=== PATIENT | male | born 1995 | race Caucasian/White ===

== ENCOUNTER 2016-12-18 10:22 | Emergency (ER) | payer OTHER ==
[2016-12-18] MEDS ORDERED: KETOROLAC 30 MG/ML VIAL (J1885) As Ordered ONE (11:06)
--- NOTE | 2016-12-18 11:41 | REP ---
RIGHT HAND SERIES: Four views. HISTORY: Trauma. FINDINGS: Four views of the right hand demonstrate a comminuted fracture of the distal end of the 5th metacarpal with associated soft-tissue swelling. There is slight apex dorsal angulation. No displacement. IMPRESSION: Boxer's fracture of the distal 5th metacarpal with associated swelling. Signed by Abbe Mehta MD 12/18/2016 02:27 P
--- NOTE | 2016-12-18 12:21 | EDDOCDS ---
Physician Documentation [facility] Name: Declan Samaniego Age: 21 yrs Sex: Male : 1995 Arrival Date: 12/18/2016 Time: 10:22 Bed I6 / 28 Private MD: Ramírez JHA Disposition: 12/18/16 12:12 Discharged to Home/Self Care. Impression: Displaced fracture of shaft of fifth metacarpal bone, right hand - Closed, 30 degree angulation. - Condition is Stable. - Discharge Instructions: Boxer's Fracture. - Prescriptions for [place] 5- 325 mg Oral Tablet - take 1 tablet by ORAL route every 6 hours As needed MDD: 4 tabs; 20 tablet. - Medication Reconciliation, Local Pharmacy Hours form. - Follow up: Ortho Ramírez Poole; When: 1 - 2 days; Reason: Further diagnostic work-up, Recheck today's complaints, Continuance of care. Follow up: Emergency Department; Reason: Worsening of conditions. - Problem is new. - Symptoms have improved. Historical: - Allergies: SULFA (SULFONAMIDES) (Hives); - Home Meds: 1. Concerta 72 mg Oral once daily (Last dose: 12/17/2016) 2. ibuprofen 200 mg Oral tab 800 mg every 6 hours as needed (Last dose: 12/17/2016) - PMHx: ADHD; - PSHx: left schafoid bone; - Social history: Smoking status: Patient states was never smoker of tobacco. No barriers to communication noted, The patient speaks fluent Italian. - Family history: Not pertinent. - : The pt / caregiver states he / she is not on anticoagulants. Home medication list is obtained from the patient. - Exposure Risk Screening:: None identified. Vital Signs: 12/18 10:25 BP 147 / 70; Pulse 90; Resp 17; Temp 98.7(T); Pulse Ox 98% on R/A; Weight 104.33 kg / lr2 230.01 lbs (R); Height 6 ft. 3 in. (190.50 cm) (R); Pain 6/10; 12:18 BP 138 / 72; Pulse 91; Resp 18; Temp 97.3; Pulse Ox 98% on R/A; Pain 5/10; pml 10:25 Body Mass Index 28.75 (104.33 kg, 190.50 cm) lr2 Procedures: 12:10 Fracture care/splinting: Splint applied to right hand using Orthoglass splint, applied ef1 by myself. Examined by me, post splint application: neurovascular intact, 2+ distal pulses palpable, brisk capillary refill noted, Patient tolerated well. MDM: 11:05 ketorolac 60 mg IM once ordered. ef1 11:05 Ice Pack ordered. ef1 11:05 Hand, Complete Ordered. EDMS 11:09 Financial registration complete. mm15 11:10 [facility] Payment Agreement was scanned into [employer] and attached to record. mm15 12:09 Sling ordered. ef1 12:10 Splint Affected Extremity ordered. ef1 Administered Medications: 11:09 Drug: ketorolac 60 mg [ketorolac 30 mg/mL (1 mL) injection solution (2 mL)] Route: IM; srm Site: left deltoid; 12:19 Follow up: Response: Pain is decreased pml Signatures: Dispatcher [employer] EDID Elizabeth Silva RN RN kpj Feola, Erica, PA-C PA-C ef1 Jerrica Pepper RN RN pml Romeo Raphael mm15 Jessica Guardado RN srm The chart was reviewed and I authenticate all verbal orders and agree with the evaluation and treatment provided.Attachments: 11:10 [facility] Payment Agreement mm15 MTDD
--- NOTE | 2016-12-18 12:21 | EDDOCDS ---
Nurse's Notes [facility] Name: Declan Samaniego Age: 21 yrs Sex: Male : 1995 Arrival Date: 12/18/2016 Time: 10:22 Bed I6 / 28 [facility] Diagnosis: Displaced fracture of shaft of fifth metacarpal bone, right hand-Closed, 30 degree angulation Presentation: 12/18 10:47 Presenting complaint: Patient states: punched a tank with his right hand yesterday kpj injuring right hand.bruising and swelling over right fourth and fifth metacarpals. Adult Sepsis Screening: The patient does not have new or worsening altered mentation. Patient's respiratory rate is less than 22. Systolic blood pressure is greater than 100. Patient has a qSOFA score of 0- Negative Sepsis Screen. Suicide/Homicide risk assessment- the patient denies having any suicidal and/or homicidal ideations and does not present with any other emotional, behavioral or mental health complaints. Status: The patient is an active duty auto service dispatcher. Transition of care: patient was not received from another setting of care. 10:47 Acuity: TOOTIE Level 3 [facility] 10:47 Method Of Arrival: Walkin/Carried/Asstd kpj Triage Assessment: 10:51 General: Appears in no apparent distress, Behavior is appropriate for age, pleasant. kpj Pain: Location: right hand Pain currently is 6 out of 10 on a pain scale. HIV screening NA for this visit Offered previously. Neurological: Level of Consciousness is awake, alert, Oriented to person, place, time. Respiratory: Airway is patent Respiratory effort is even, unlabored. Derm: Skin is pink, warm & dry. Musculoskeletal: Circulation, motion, and sensation intact Capillary refill < 3 seconds in right fingers Swelling present in right hand. Historical: - Allergies: SULFA (SULFONAMIDES) (Hives); - Home Meds: 1. Concerta 72 mg Oral once daily (Last dose: 12/17/2016) 2. ibuprofen 200 mg Oral tab 800 mg every 6 hours as needed (Last dose: 12/17/2016) - PMHx: ADHD; - PSHx: left schafoid bone; - Social history: Smoking status: Patient states was never smoker of tobacco. No barriers to communication noted, The patient speaks fluent Bolivian. - Family history: Not pertinent. - : The pt / caregiver states he / she is not on anticoagulants. Home medication list is obtained from the patient. - Exposure Risk Screening:: None identified. Screenin:18 Screening information is obtained from the patient. Fall risk: No risks identified. pml Assistance ADL's: requires no assistance with activities of daily living. Abuse/DV Screen: The patient / caregiver reports he/she is: not in a situation that causes fear, pain or injury. Nutritional screening: No deficits noted. Advance Directives: Currently, there is no health care proxy. home support is adequate. Assessment: 12:18 General: Appears in no apparent distress, comfortable, Behavior is appropriate for age, pml cooperative. Pain: Location: right hand Pain currently is 5 out of 10 on a pain scale. Neurological: Level of Consciousness is awake, alert, Oriented to person, place, time. Cardiovascular: Capillary refill < 3 seconds. Respiratory: Airway is patent Respiratory effort is even, unlabored. GI: Abdomen is non- distended. Derm: Skin is pink, warm & dry. Musculoskeletal: Circulation, motion, and sensation intact Capillary refill < 3 seconds. Vital Signs: 10:25 BP 147 / 70; Pulse 90; Resp 17; Temp 98.7(T); Pulse Ox 98% on R/A; Weight 104.33 kg lr2 (R); Height 6 ft. 3 in. (190.50 cm) (R); Pain 6/10; 12:18 BP 138 / 72; Pulse 91; Resp 18; Temp 97.3; Pulse Ox 98% on R/A; Pain 5/10; pml 10:25 Body Mass Index 28.75 (104.33 kg, 190.50 cm) lr2 Vitals: 10:25 Log In Time: December 18, 2016 at 10:22. lr2 ED Course: 10:24 Patient visited by Caitlin Hdez. lr2 10:24 [facility]. lr2 10:24 Patient moved to Waiting lr2 10:44 Patient moved to Pre RCE lr2 10:49 Triage Initiated [facility] 10:52 Patient moved to Triage 2 [facility] 10:54 Jennifer Humphrey PA-C is PHCP. ef1 10:54 Jagruti Johnston MD is Attending Physician. ef1 10:54 Patient visited by Jennifer Humphrey PA-C. ef1 11:09 Patient moved to TR3 [facility] 11:09 Patient moved to Radiology [facility] 11:10 [facility] Payment Agreement was scanned into [employer] and attached to record. mm15 11:15 Patient moved to TR3 es5 11:31 Patient visited by Jennifer Humphrey PA-C. ef1 11:44 Patient moved to I6 / 28 [facility] 12:00 Hand, Complete Returned. EDMS 12:01 Patient visited by Jennifer Humphrey PA-C. ef1 12:05 Assist provider with fracture care of right hand Fracture is closed. Obvious deformity pml is not noted. Circulation, motor and sensation is intact. Set up for procedure. Immoblized with Ortho Glass splint Performed by Jennifer Humphrey PA-C Post immobilization, circulation, motor and sensation remain intact. Patient tolerated well. 12:12 Waylon Westfall is Referral Physician. ef1 12:18 The patient / caregiver is instructed regarding the plan of care and ED course. Patient pml has correct armband on for positive identification. Placed in gown. Bed in low position. Call light in reach. Side rails up X2. 12:18 No IV's were initiated during this patient's visit. pml Administered Medications: 11:09 Drug: ketorolac 60 mg [ketorolac 30 mg/mL (1 mL) injection solution (2 mL)] Route: IM; [facility] Site: left deltoid; 12:19 Follow up: Response: Pain is decreased pml Order Results: Radiology Order: Hand, Complete Test: Hand, Complete REASON FOR EXAMINATION: Trauma; RIGHT HAND SERIES: Four views.; ; HISTORY: Trauma.; ; FINDINGS: Four views of the right hand demonstrate a comminuted fracture of the; distal end of the 5th metacarpal with associated soft-tissue swelling. There is; slight apex dorsal angulation. No displacement.; ; IMPRESSION:; Boxer's fracture of the distal 5th metacarpal with associated swelling.; ; ; ; ; Unreviewed; Outcome: 12:12 Discharge ordered by Provider. ef1 12:18 Discharge Assessment: Patient awake, alert and oriented x 3. No cognitive and/or pml functional deficits noted. Patient verbalized understanding of disposition instructions. patient administered narcotics - no. The following High Risk Discharge criteria are identified: None. Discharged to home ambulatory, with significant other. Condition: good Condition: stable. Discharge instructions given to patient, Instructed on discharge instructions, follow up and referral plans. medication usage, no driving heavy equipment, Demonstrated understanding of instructions, medications, Pt was receptive of discharge instructions/ teaching. Prescriptions given X 1. No special radiology studies were completed. Property sent home with patient. 12:20 Patient left the ED. pml Signatures: Dispatcher [employer] EDCA Elizabeth Silva RN RN kpj Michelson, Staci RN Jennifer Byers, PA-C PA-C ef1 Jerrica Pepper RN RN Rachell CarpenterRN RN marcela Jennifer Suárez es5 Romeo Raphael mm15 Caitlin Hdez lr2 MTDD
--- NOTE | 2016-12-20 13:21 | EDDOCDS ---
Physician Documentation [facility] Name: Declan Samaniego Age: 21 yrs Sex: Male : 1995 Arrival Date: 12/18/2016 Time: 10:22 Bed I6 / 28 Private MD: Ramírez JHA Disposition: 12/18/16 12:12 Discharged to Home/Self Care. Impression: Displaced fracture of shaft of fifth metacarpal bone, right hand - Closed, 30 degree angulation. - Condition is Stable. - Discharge Instructions: Boxer's Fracture. - Prescriptions for [place] 5- 325 mg Oral Tablet - take 1 tablet by ORAL route every 6 hours As needed MDD: 4 tabs; 20 tablet. - Medication Reconciliation, Local Pharmacy Hours form. - Follow up: Ortho Ramírez [facility]; When: 1 - 2 days; Reason: Further diagnostic work-up, Recheck today's complaints, Continuance of care. Follow up: Emergency Department; Reason: Worsening of conditions. - Problem is new. - Symptoms have improved. Historical: - Allergies: SULFA (SULFONAMIDES) (Hives); - Home Meds: 1. Concerta 72 mg Oral once daily (Last dose: 12/17/2016) 2. ibuprofen 200 mg Oral tab 800 mg every 6 hours as needed (Last dose: 12/17/2016) - PMHx: ADHD; - PSHx: left schafoid bone; - Social history: Smoking status: Patient states was never smoker of tobacco. No barriers to communication noted, The patient speaks fluent Sinhala. - Family history: Not pertinent. - : The pt / caregiver states he / she is not on anticoagulants. Home medication list is obtained from the patient. - Exposure Risk Screening:: None identified. Vital Signs: 12/18 10:25 BP 147 / 70; Pulse 90; Resp 17; Temp 98.7(T); Pulse Ox 98% on R/A; Weight 104.33 kg / lr2 230.01 lbs (R); Height 6 ft. 3 in. (190.50 cm) (R); Pain 6/10; 12:18 BP 138 / 72; Pulse 91; Resp 18; Temp 97.3; Pulse Ox 98% on R/A; Pain 5/10; pml 10:25 Body Mass Index 28.75 (104.33 kg, 190.50 cm) lr2 Procedures: 12:10 Fracture care/splinting: Splint applied to right hand using Orthoglass splint, applied ef1 by myself. Examined by me, post splint application: neurovascular intact, 2+ distal pulses palpable, brisk capillary refill noted, Patient tolerated well. MDM: 11:05 ketorolac 60 mg IM once ordered. ef1 11:05 Ice Pack ordered. ef1 11:05 Hand, Complete Ordered. EDMS 11:09 Financial registration complete. mm15 11:10 REPLACED BY [facility] Payment Agreement was scanned into [employer] and attached to record. mm15 12:09 Sling ordered. ef1 12:10 Splint Affected Extremity ordered. ef1 15:45 T-Sheet-- Draft Copy was scanned into [employer] and attached to record. klr Administered Medications: 11:09 Drug: ketorolac 60 mg [ketorolac 30 mg/mL (1 mL) injection solution (2 mL)] Route: IM; srm Site: left deltoid; 12:19 Follow up: Response: Pain is decreased pml Signatures: Dispatcher [employer] EDMS Elizabeth Silva RN RN Jennifer Yeung, PA-C PARaymond ef1 Jerrica Pepper RN RN pml Romeo Raphael mm15 Denice Arceo Staci RN srm The chart was reviewed and I authenticate all verbal orders and agree with the evaluation and treatment provided.Attachments: 11:10 REPLACED BY [facility] Payment Agreement mm15 15:45 T-Sheet-- Draft Copy klr Chart Complete MTDD
--- NOTE | 2016-12-20 13:21 | EDDOCDS ---
Physician Documentation [facility] Name: Declan Samaniego Age: 21 yrs Sex: Male : 1995 Arrival Date: 12/18/2016 Time: 10:22 Bed I6 / 28 Private MD: Ramírez JHA Disposition: 12/18/16 12:12 Discharged to Home/Self Care. Impression: Displaced fracture of shaft of fifth metacarpal bone, right hand - Closed, 30 degree angulation. - Condition is Stable. - Discharge Instructions: Boxer's Fracture. - Prescriptions for [place] 5- 325 mg Oral Tablet - take 1 tablet by ORAL route every 6 hours As needed MDD: 4 tabs; 20 tablet. - Medication Reconciliation, Local Pharmacy Hours form. - Follow up: Ortho Ramírez [facility]; When: 1 - 2 days; Reason: Further diagnostic work-up, Recheck today's complaints, Continuance of care. Follow up: Emergency Department; Reason: Worsening of conditions. - Problem is new. - Symptoms have improved. Historical: - Allergies: SULFA (SULFONAMIDES) (Hives); - Home Meds: 1. Concerta 72 mg Oral once daily (Last dose: 12/17/2016) 2. ibuprofen 200 mg Oral tab 800 mg every 6 hours as needed (Last dose: 12/17/2016) - PMHx: ADHD; - PSHx: left schafoid bone; - Social history: Smoking status: Patient states was never smoker of tobacco. No barriers to communication noted, The patient speaks fluent Spanish. - Family history: Not pertinent. - : The pt / caregiver states he / she is not on anticoagulants. Home medication list is obtained from the patient. - Exposure Risk Screening:: None identified. Vital Signs: 12/18 10:25 BP 147 / 70; Pulse 90; Resp 17; Temp 98.7(T); Pulse Ox 98% on R/A; Weight 104.33 kg / lr2 230.01 lbs (R); Height 6 ft. 3 in. (190.50 cm) (R); Pain 6/10; 12:18 BP 138 / 72; Pulse 91; Resp 18; Temp 97.3; Pulse Ox 98% on R/A; Pain 5/10; pml 10:25 Body Mass Index 28.75 (104.33 kg, 190.50 cm) lr2 Procedures: 12:10 Fracture care/splinting: Splint applied to right hand using Orthoglass splint, applied ef1 by myself. Examined by me, post splint application: neurovascular intact, 2+ distal pulses palpable, brisk capillary refill noted, Patient tolerated well. MDM: 11:05 ketorolac 60 mg IM once ordered. ef1 11:05 Ice Pack ordered. ef1 11:05 Hand, Complete Ordered. EDMS 11:09 Financial registration complete. mm15 11:10 [facility] Payment Agreement was scanned into [employer] and attached to record. mm15 12:09 Sling ordered. ef1 12:10 Splint Affected Extremity ordered. ef1 15:45 T-Sheet-- Draft Copy was scanned into [employer] and attached to record. klr Administered Medications: 11:09 Drug: ketorolac 60 mg [ketorolac 30 mg/mL (1 mL) injection solution (2 mL)] Route: IM; srm Site: left deltoid; 12:19 Follow up: Response: Pain is decreased pml Signatures: Dispatcher [employer] EDMS Elizabeth Silva RN RN Jennifer Yeung, PA-C PARaymond ef1 Jerrica Pepper RN RN pml Romeo Raphael mm15 Denice Arceo Staci RN srm The chart was reviewed and I authenticate all verbal orders and agree with the evaluation and treatment provided.Attachments: 11:10 [facility] Payment Agreement mm15 15:45 T-Sheet-- Draft Copy klr Chart Complete MTDD
--- NOTE | 2016-12-20 13:21 | EDDOCDS ---
Nurse's Notes [facility] Name: Declan Samaniego Age: 21 yrs Sex: Male : 1995 Arrival Date: 12/18/2016 Time: 10:22 Bed I6 / 28 [facility] Diagnosis: Displaced fracture of shaft of fifth metacarpal bone, right hand-Closed, 30 degree angulation Presentation: 12/18 10:47 Presenting complaint: Patient states: punched a tank with his right hand yesterday kpj injuring right hand.bruising and swelling over right fourth and fifth metacarpals. Adult Sepsis Screening: The patient does not have new or worsening altered mentation. Patient's respiratory rate is less than 22. Systolic blood pressure is greater than 100. Patient has a qSOFA score of 0- Negative Sepsis Screen. Suicide/Homicide risk assessment- the patient denies having any suicidal and/or homicidal ideations and does not present with any other emotional, behavioral or mental health complaints. Status: The patient is an active duty support services manager. Transition of care: patient was not received from another setting of care. 10:47 Acuity: TOOTIE Level 3 [facility] 10:47 Method Of Arrival: Walkin/Carried/Asstd kpj Triage Assessment: 10:51 General: Appears in no apparent distress, Behavior is appropriate for age, pleasant. kpj Pain: Location: right hand Pain currently is 6 out of 10 on a pain scale. HIV screening NA for this visit Offered previously. Neurological: Level of Consciousness is awake, alert, Oriented to person, place, time. Respiratory: Airway is patent Respiratory effort is even, unlabored. Derm: Skin is pink, warm & dry. Musculoskeletal: Circulation, motion, and sensation intact Capillary refill < 3 seconds in right fingers Swelling present in right hand. Historical: - Allergies: SULFA (SULFONAMIDES) (Hives); - Home Meds: 1. Concerta 72 mg Oral once daily (Last dose: 12/17/2016) 2. ibuprofen 200 mg Oral tab 800 mg every 6 hours as needed (Last dose: 12/17/2016) - PMHx: ADHD; - PSHx: left schafoid bone; - Social history: Smoking status: Patient states was never smoker of tobacco. No barriers to communication noted, The patient speaks fluent Cameroonian. - Family history: Not pertinent. - : The pt / caregiver states he / she is not on anticoagulants. Home medication list is obtained from the patient. - Exposure Risk Screening:: None identified. Screenin:18 Screening information is obtained from the patient. Fall risk: No risks identified. pml Assistance ADL's: requires no assistance with activities of daily living. Abuse/DV Screen: The patient / caregiver reports he/she is: not in a situation that causes fear, pain or injury. Nutritional screening: No deficits noted. Advance Directives: Currently, there is no health care proxy. home support is adequate. Assessment: 12:18 General: Appears in no apparent distress, comfortable, Behavior is appropriate for age, pml cooperative. Pain: Location: right hand Pain currently is 5 out of 10 on a pain scale. Neurological: Level of Consciousness is awake, alert, Oriented to person, place, time. Cardiovascular: Capillary refill < 3 seconds. Respiratory: Airway is patent Respiratory effort is even, unlabored. GI: Abdomen is non- distended. Derm: Skin is pink, warm & dry. Musculoskeletal: Circulation, motion, and sensation intact Capillary refill < 3 seconds. Vital Signs: 10:25 BP 147 / 70; Pulse 90; Resp 17; Temp 98.7(T); Pulse Ox 98% on R/A; Weight 104.33 kg lr2 (R); Height 6 ft. 3 in. (190.50 cm) (R); Pain 6/10; 12:18 BP 138 / 72; Pulse 91; Resp 18; Temp 97.3; Pulse Ox 98% on R/A; Pain 5/10; pml 10:25 Body Mass Index 28.75 (104.33 kg, 190.50 cm) lr2 Vitals: 10:25 Log In Time: December 18, 2016 at 10:22. lr2 ED Course: 10:24 Patient visited by Caitlin Hdez. lr2 10:24 [facility]. lr2 10:24 Patient moved to Waiting lr2 10:44 Patient moved to Pre RCE lr2 10:49 Triage Initiated [facility] 10:52 Patient moved to Triage 2 [facility] 10:54 Jennifer Humphrey PA-C is PHCP. ef1 10:54 Jagruti Johnston MD is Attending Physician. ef1 10:54 Patient visited by Jennifer Humphrey PA-C. ef1 11:09 Patient moved to TR3 [facility] 11:09 Patient moved to Radiology [facility] 11:10 [facility] Payment Agreement was scanned into [email or web address] and attached to record. mm15 11:15 Patient moved to TR3 es5 11:31 Patient visited by Jennifer Humphrey PA-C. ef1 11:44 Patient moved to I6 / [facility] 12:00 Hand, Complete Returned. EDMS 12:01 Patient visited by Jennifer Humphrey PA-C. ef1 12:05 Assist provider with fracture care of right hand Fracture is closed. Obvious deformity pml is not noted. Circulation, motor and sensation is intact. Set up for procedure. Immoblized with Ortho Glass splint Performed by Jennifer Humphrey PA-C Post immobilization, circulation, motor and sensation remain intact. Patient tolerated well. 12:12 Waylon Westfall is Referral Physician. ef1 12:18 The patient / caregiver is instructed regarding the plan of care and ED course. Patient pml has correct armband on for positive identification. Placed in gown. Bed in low position. Call light in reach. Side rails up X2. 12:18 No IV's were initiated during this patient's visit. pml 12:20 Sling applied to right arm. Patient with positive distal sensation and brisk distal pml capillary refill after application. 15:45 T-Sheet-- Draft Copy was scanned into [email or web address] and attached to record. klr Administered Medications: 11:09 Drug: ketorolac 60 mg [ketorolac 30 mg/mL (1 mL) injection solution (2 mL)] Route: IM; [facility] Site: left deltoid; 12:19 Follow up: Response: Pain is decreased pml Order Results: Radiology Order: Hand, Complete Test: Hand, Complete REASON FOR EXAMINATION: Trauma; RIGHT HAND SERIES: Four views.; ; HISTORY: Trauma.; ; FINDINGS: Four views of the right hand demonstrate a comminuted fracture of the; distal end of the 5th metacarpal with associated soft-tissue swelling. There is; slight apex dorsal angulation. No displacement.; ; IMPRESSION:; ; Boxer's fracture of the distal 5th metacarpal with associated swelling.; ; ; Signed by; Abbe Mehta MD 12/18/2016 02:27 P; Outcome: 12:12 Discharge ordered by Provider. ef1 12:18 Discharge Assessment: Patient awake, alert and oriented x 3. No cognitive and/or pml functional deficits noted. Patient verbalized understanding of disposition instructions. patient administered narcotics - no. The following High Risk Discharge criteria are identified: None. Discharged to home ambulatory, with significant other. Condition: good Condition: stable. Discharge instructions given to patient, Instructed on discharge instructions, follow up and referral plans. medication usage, no driving heavy equipment, Demonstrated understanding of instructions, medications, Pt was receptive of discharge instructions/ teaching. Prescriptions given X 1. No special radiology studies were completed. Property sent home with patient. 12:20 Patient left the ED. pml Signatures: Dispatcher [employer] EDMS Elizabeth Silva RN RN Jessica Cavazos RN RN Jennifer Zamudio, PA-C PA-C ef1 Jerrica Pepper RN RN pml Hafner, Jane, RN RN [facility] Jennifer Suárez es5 Romeo Raphael mm15 Denice Arceo Laura lr2 Chart Complete MTDJamila
== END 2016-12-18 12:20 | disposition home or self-care (01) ==
LOC: M ED 10:22
DX: S62.316A Displaced fracture of base of fifth metacarpal bone, right hand, initial encounter for closed fracture (principal); W22.8XXA Striking against or struck by other objects, initial encounter; Y92.89 Other specified places as the place of occurrence of the external cause; Y93.89 Activity, other specified; Y99.1 Military activity; F90.9 Attention-deficit hyperactivity disorder, unspecified type; Z79.899 Other long term (current) drug therapy; Z88.2 Allergy status to sulfonamides
CPT/HCPCS: 73130; 96372; 99284; J1885

== ENCOUNTER 2017-03-31 14:54 | Inpatient (IN) | payer OTHER ==
[~2017-03-31] VITALS: Ht 190.5 cm; Wt 113.6 kg
[2017-03-31] MEDS ORDERED: ADDE20CA PO (15:11)
[2017-03-31] MEDS ORDERED: MORPHINE 4 MG/ML 1ML SYRINGE IV ONE ×3 (15:30→18:15)
[2017-03-31] MEDS ORDERED: ONDANSETRON 4MG/2ML VIAL (J2405) IV ONE (15:30)
[2017-03-31 16:15] LABS: BASO # 0.1 K/mm3 (0.0-0.2); BASO % 0.5 % (0.0-1.0); EOS # 0.1 K/mm3 (0.0-0.50); EOS % 1.2 % (0.0-3.0); LARGE UNSTAINED CELL # 0.3 K/mm3 (0.0-0.4); LARGE UNSTAINED CELL % 2.6 % (0.0-4.0); LYMPH # 1.7 K/mm3 (1.5-6.5); LYMPH % 11.3 % (24.0-44.0); MEAN CORPUSCULAR HEMOGLOBIN 30.7 pg (27.0-33.0); MEAN CORPUSCULAR VOLUME 85.4 fl (80.0-96.0); MONO % 8.7 % (0.0-5.0); NEUTROPHILS # 9.1 K/mm3 (1.8-7.7); NEUTROPHILS % 75.7 % (36.0-66.0); PLATELET COUNT, AUTOMATED 281 k/mm3 (150-450); RED CELL DISTRIBUTION WIDTH 11.7 % (11.5-14.5)
[2017-03-31 16:47] LABS: ALBUMIN 3.8 GM/DL (3.2-5.2); ALBUMIN/GLOBULIN RATIO 0.93 (1.00-1.93); ALKALINE PHOSPHATASE 118 U/L (45-117); ALT/SGPT 52 U/L (12-78); ANION GAP 6 MEQ/L (8-16); AST/SGOT 25 U/L (15-37); BILIRUBIN,DIRECT 0.2 MG/DL (0.0-0.2); BILIRUBIN,TOTAL 0.9 MG/DL (0.2-1.0); BLOOD UREA NITROGEN 15 MG/DL (7-18); CALCIUM LEVEL 8.8 MG/DL (8.5-10.1); CARBON DIOXIDE LEVEL 29 MEQ/L (21-32); CHLORIDE LEVEL 99 MEQ/L (98-107); CREATININE FOR GFR 1.05 MG/DL (0.70-1.30); GLOMERULAR FILTRATION RATE > 60.0 (>60); GLUCOSE, FASTING 80 MG/DL (70-105); POTASSIUM SERUM 3.8 MEQ/L (3.5-5.1); SODIUM LEVEL 134 MEQ/L (136-145); TOTAL PROTEIN 7.9 GM/DL (6.4-8.2)
[2017-03-31] MEDS ORDERED: ISOVUE-370 76% 100ML VIAL (Q9967) As Ordered ONE (16:52)
--- NOTE | 2017-03-31 18:00 | REP ---
CT of the abdomen pelvis: Studies requested without IV contrast but without bowel contrast: There are no comparisons. There is paracecal phlegmon and abscess. The appendix is not identified as a distinct structure, however, findings are compatible with appendiceal rupture and appendicitis. There is no pneumoperitoneum. There is no ascites. The visualized lung morataya are unremarkable except for dependent atelectasis. The hepatic parenchyma, gallbladder, pancreas, spleen, adrenals, kidneys, abdominal aorta are unremarkable. The remainder of the bowel is unremarkable. Pelvis: The bladder is unremarkable. There is no adenopathy or ascites. Pelvic bowel loops are unremarkable except for the pericecal phlegmon. Impression: Paracecal phlegmon and abscess formation compatible with ruptured appendix and appendicitis. There are no comparison studies. There is no pneumoperitoneum or ascites. Signed by Emeka Baig MD 03/31/2017 05:51 P
[2017-03-31] MEDS ORDERED: NS 1,000 ML IV ONE (18:15)
[2017-03-31] MEDS ORDERED: PIPERACILLIN/TAZOBACTAM SOD 3.375 GM in D5W MINI-BAG PLUS 50 ML IV ONE (18:15)
[2017-03-31] MEDS ORDERED: PERCOCET 5MG/325MG TAB PO PRN (19:00)
[2017-03-31] MEDS ORDERED: METOCLOPRAMIDE INJ 10MG/2ML VIAL (J2765) IV PRN (19:00)
[2017-03-31] MEDS ORDERED: ONDANSETRON 4MG/2ML VIAL (J2405) IV PRN (19:00)
[2017-03-31] MEDS ORDERED: MORPHINE 4 MG/ML 1ML SYRINGE IV PRN (19:00)
[2017-03-31] MEDS ORDERED: PROMETHAZINE INJ 25 MG/ML VIAL (J2550) IV PRN (19:00)
[2017-03-31] MEDS ORDERED: MORPHINE 2 MG/ML 1ML SYRINGE IV PRN (19:00)
[2017-03-31 21:25] VITALS: BP 120/65
[2017-03-31] MEDS: KETOROLAC 30 MG/ML VIAL (J1885) IV PRN (21:34)
[2017-03-31] MEDS: LR 1,000 ML IV SCH (21:44)
[2017-04-01] VITALS: BP 118/56
[2017-04-01] MEDS: PIPERACILLIN/TAZOBACTAM SOD 3.375 GM in D5W MINI-BAG PLUS 50 ML IV SCH ×4 (01:01→20:27)
[2017-04-01 04:00] VITALS: BP 119/59
[2017-04-01] MEDS: KETOROLAC 30 MG/ML VIAL (J1885) IV PRN ×3 (04:27→20:27)
[2017-04-01] MEDS: LR 1,000 ML IV SCH ×3 (06:57→21:30)
[2017-04-01 07:06] LABS: MEAN CORPUSCULAR HEMOGLOBIN 30.9 pg (27.0-33.0); MEAN CORPUSCULAR VOLUME 88.2 fl (80.0-96.0); RED CELL DISTRIBUTION WIDTH 11.5 % (11.5-14.5); WHITE BLOOD COUNT 12.1 K/mm3 (4.0-10.0)
[2017-04-01 07:20] LABS: ANION GAP 7 MEQ/L (8-16); BLOOD UREA NITROGEN 15 MG/DL (7-18); CALCIUM LEVEL 8.8 MG/DL (8.5-10.1); CARBON DIOXIDE LEVEL 28 MEQ/L (21-32); CHLORIDE LEVEL 102 MEQ/L (98-107); CREATININE FOR GFR 1.18 MG/DL (0.70-1.30); GLOMERULAR FILTRATION RATE > 60.0 (>60); GLUCOSE, FASTING 86 MG/DL (70-105); POTASSIUM SERUM 4.4 MEQ/L (3.5-5.1); SODIUM LEVEL 137 MEQ/L (136-145)
[2017-04-01 08:00] VITALS: BP 120/57
[2017-04-01 12:00] VITALS: BP 122/63
--- NOTE | 2017-04-01 13:47 | IPN ---
DATE: 04/01/2017 Patient overall has been doing well overnight, although he states that his pain is better than it was last night. He did have a temperature of 100 overnight and his white count is stable at 12.1. Overall, vital signs are stable. He is not appearing septic; however, he still has some significant tenderness on his physical exam in the right lower quadrant, with some guarding present without significant rebound. IMPRESSION AND PLAN: The patient has a probable perforated appendicitis and is developing an abscess with his white count persistently elevated as well as his temperature being increased overnight. I do feel that it is warranted to attempt a CT guided drainage. Will schedule that for today. If he has a drain placed, we will keep that in over the weekend and consider discontinuing the drain once he has had a normal white count for 24-48 hours and his drainage is less than 30 mL. Otherwise, will await the CT findings.
[2017-04-01] MEDS ORDERED: LIDOCAINE 1% MDV 20ML VIAL As Ordered ONE (13:55)
--- NOTE | 2017-04-01 14:02 | HPE ---
DATE OF ADMISSION: 03/31/2017 CHIEF COMPLAINT: Perforated appendix with periappendiceal abscess. HISTORY OF PRESENT ILLNESS: The patient is a 22-year-old male who started having pain approximately 5 days prior to admission; specifically, on the right side of his abdomen. Initially, unsure if this was musculoskeletal or some sort of GI issue. He kind of worked through his pain and discomfort and was able to receive some IV fluids over the weekend. Then, was seen in [facility] this week and it sounds as though he was seen a couple of times. Initially, had some pain and it sounds as though it may have been slowly improving but present and then became much worse over the last 24 hours. He had an elevated white count and was referred to the emergency room for additional evaluation/treatment. MEDICATIONS (include): - Adderall PAST MEDICAL HISTORY: Significant for attention deficit hyperactivity disorder (ADHD) and left wrist surgery. PHYSICAL EXAMINATION: Reveals a 22-year-old male who looks stated age. HEENT: Reveals an atraumatic, normocephalic head with extraocular movements intact. Pupils are equal and reactive to light. Sclerae nonicteric. Oropharynx clear without exudate or lesions. Neck: Supple without adenopathy. Lungs are clear to auscultation without crackles, wheeze or rhonchi. Heart is regular without murmur. Abdomen is soft, nondistended, but he is tender with some guarding in the right lower quadrant. Extremities: Warm, well-perfused. IMPRESSION AND PLAN: The patient has evidence of probable perforated appendicitis with a developing abscess/phlegmon and my recommendation is that we keep him on antibiotics, make him nothing by mouth (n.p.o.) overnight and see how he does by the morning. If he has significant improvement, we may be able to keep him on antibiotics over the weekend and then possibly reevaluate him early next week Tuesday or Tuesday with a repeat CT scan. However, if he does not have improvement of his white count or has fevers or increasing pain, then we should proceed with a CT-guided drainage. The patient understands our current plan and agrees to continue with current plan at this time.
[2017-04-01] MEDS: PERCOCET 5MG/325MG TAB PO PRN (14:51)
[2017-04-01 16:00] VITALS: BP 127/63
--- NOTE | 2017-04-01 16:12 | REP ---
ULTRASOUND GUIDED RIGHT LOWER QUADRANT ABSCESS DRAIN: The procedure was performed under the direct supervision of Dr. Mehta. The patient has a history of a pericecal phlegmon and abscess formation compatible with ruptured appendix and appendicitis in the right lower quadrant seen on a previous CT scan dated 03/31/2017. The risks and benefits of the procedure were explained to the patient and informed consent was obtained. The right lower quadrant abscess was localized using ultrasound guidance. The skin was prepped and draped in a sterile fashion. 1% Xylocaine was used a local anesthetic. Using ultrasound guidance, an #8-Kos[place] skater APDL catheter was inserted using trocar technique. 25 mL of brown/red colored fluid was withdrawn and sent to the lab. The catheter was affixed to the skin and sterile dressing was applied. The catheter was connected to a gravity drainage bag. The patient tolerated the procedure well and there were no immediate complications. Reviewed by NATIVIDAD Pang 04/01/2017 04:46 PEdited and Signed by Abbe Mehta MD 04/04/2017 08:34 A
[2017-04-01 20:00] VITALS: BP 135/69
[2017-04-02] VITALS: BP 114/62
[2017-04-02] MEDS: PERCOCET 5MG/325MG TAB PO PRN ×2 (00:06→12:56)
[2017-04-02] MEDS: PIPERACILLIN/TAZOBACTAM SOD 3.375 GM in D5W MINI-BAG PLUS 50 ML IV SCH ×4 (01:39→19:19)
[2017-04-02 04:00] VITALS: BP 106/57
[2017-04-02 06:45] LABS: MEAN CORPUSCULAR HEMOGLOBIN 30.2 pg (27.0-33.0); MEAN CORPUSCULAR VOLUME 86.3 fl (80.0-96.0); RED CELL DISTRIBUTION WIDTH 11.8 % (11.5-14.5); WHITE BLOOD COUNT 8.2 K/mm3 (4.0-10.0)
[2017-04-02 07:10] LABS: ANION GAP 6 MEQ/L (8-16); BLOOD UREA NITROGEN 13 MG/DL (7-18); CALCIUM LEVEL 8.6 MG/DL (8.5-10.1); CARBON DIOXIDE LEVEL 29 MEQ/L (21-32); CHLORIDE LEVEL 104 MEQ/L (98-107); CREATININE FOR GFR 1.11 MG/DL (0.70-1.30); GLOMERULAR FILTRATION RATE > 60.0 (>60); GLUCOSE, FASTING 91 MG/DL (70-105); POTASSIUM SERUM 4.2 MEQ/L (3.5-5.1); SODIUM LEVEL 139 MEQ/L (136-145)
[2017-04-02 08:00] VITALS: BP 119/59
[2017-04-02] MEDS: KETOROLAC 30 MG/ML VIAL (J1885) IV PRN ×2 (08:08→18:21)
[2017-04-02 12:00] VITALS: BP 116/61
[2017-04-02] MEDS: DOCUSATE SODIUM 100 MG CAP PO SCH ×2 (12:51→20:18)
[2017-04-02 16:00] VITALS: BP 110/58
[2017-04-02 20:00] VITALS: BP 130/54
[2017-04-03] VITALS: BP 126/58
[2017-04-03] MEDS: PIPERACILLIN/TAZOBACTAM SOD 3.375 GM in D5W MINI-BAG PLUS 50 ML IV SCH ×4 (00:48→19:49)
[2017-04-03] MEDS: KETOROLAC 30 MG/ML VIAL (J1885) IV PRN ×2 (00:49→08:16)
[2017-04-03 04:00] VITALS: BP 125/56
[2017-04-03 06:33] LABS: MEAN CORPUSCULAR HEMOGLOBIN 30.2 pg (27.0-33.0); MEAN CORPUSCULAR VOLUME 88.7 fl (80.0-96.0); RED CELL DISTRIBUTION WIDTH 11.7 % (11.5-14.5); WHITE BLOOD COUNT 6.1 K/mm3 (4.0-10.0)
[2017-04-03 08:00] VITALS: BP 135/63
[2017-04-03] MEDS: DOCUSATE SODIUM 100 MG CAP PO SCH ×2 (08:15→20:48)
[2017-04-03 12:00] VITALS: BP 138/68
[2017-04-03] MEDS ORDERED: IBUPROFEN 600 MG TAB PO PRN (13:15)
[2017-04-03 16:00] VITALS: BP 164/74
[2017-04-03 20:00] VITALS: BP 133/64
[2017-04-04] VITALS: BP 137/65
[2017-04-04] MEDS: PIPERACILLIN/TAZOBACTAM SOD 3.375 GM in D5W MINI-BAG PLUS 50 ML IV SCH ×2 (02:07→06:32)
[2017-04-04 03:59] VITALS: BP 119/67
[2017-04-04 06:57] LABS: MEAN CORPUSCULAR HEMOGLOBIN 30.7 pg (27.0-33.0); MEAN CORPUSCULAR HGB CONC 34.6 g/dl (32.0-36.5); MEAN CORPUSCULAR VOLUME 88.6 fl (80.0-96.0); RED CELL DISTRIBUTION WIDTH 11.5 % (11.5-14.5); WHITE BLOOD COUNT 5.9 K/mm3 (4.0-10.0)
[2017-04-04 07:11] LABS: ANION GAP 8 MEQ/L (8-16); BLOOD UREA NITROGEN 12 MG/DL (7-18); CALCIUM LEVEL 8.8 MG/DL (8.5-10.1); CARBON DIOXIDE LEVEL 27 MEQ/L (21-32); CHLORIDE LEVEL 107 MEQ/L (98-107); CREATININE FOR GFR 0.96 MG/DL (0.70-1.30); GLOMERULAR FILTRATION RATE > 60.0 (>60); GLUCOSE, FASTING 106 MG/DL (70-105); SODIUM LEVEL 142 MEQ/L (136-145)
[2017-04-04 08:00] VITALS: BP 150/73
[2017-04-04] MEDS ORDERED: AMOX500T2 PO (08:19)
[2017-04-04] MEDS: DOCUSATE SODIUM 100 MG CAP PO SCH (08:38)
--- NOTE | 2017-04-06 16:51 | DSES ---
DATE OF ADMISSION: 03/31/2017 DATE OF DISCHARGE: 04/04/2017 PRINCIPAL DIAGNOSIS: Perforated appendicitis. ASSOCIATED DIAGNOSIS: History of attention deficit disorder. PROCEDURES PERFORMED: Percutaneous drainage of periappendiceal abscess / appeared perforated appendix. HISTORY OF PRESENT ILLNESS: The patient is a 22-year-old male who presents with a 5-day history of right lower quadrant pain. Developed increasing pain discomfort 24 hours prior to admission and was seen in [facility] and then was referred to the emergency room for further evaluation for abdominal pain and discomfort. CT scan revealed a phlegmon in the right lower quadrant with some developing abscess. HOSPITAL COURSE SUMMARY: The patient was admitted with the above diagnosis. Had an elevated white count of 12,000. His white count did not drop down and he still had a temperature the first day up to 100.1. And given this finding with some persistent right lower quadrant pain and the white count did drop, I felt that proceeding with a percutaneous biopsy drainage was reasonable. The patient proceeded with a drainage procedure and tolerated this quite well. Over the ensuing several days he improved substantially. His white count was normal over the next several days. His drainage from the catheter was only minimal at 15 mL but it was still very dark purulent bloody fluid. He was tolerating regular diet, had good pain control minimal pain medication. Was discharged home on Augmentin 500 mg by mouth twice a day. Was instructed to take Tylenol or Advil as needed for pain and to continue on his Adderall 40 mg by mouth twice a day. After discharge he was to follow up next week for his drain to be removed and then in 2-3 weeks with myself with the plan for a probable interval appendectomy in the future, to be discuss further with the patient at his followup visit.
== END 2017-04-04 10:30 | disposition home or self-care (01) | DRG 373 ==
LOC: M ED 15:26 → M ED INP 18:49 → M PED 21:20
PROVIDERS: ADMIT Surgery; ATTEND Surgery
PROC: 0W9J30Z Drainage of Pelvic Cavity with Drainage Device, Percutaneous Approach (ICD-10-PCS; principal; 2017-04-01)
DX: K35.2 Acute appendicitis with generalized peritonitis (principal); K35.3 Acute appendicitis with localized peritonitis

== ENCOUNTER → 2017-05-10 | Day surgery (SDC) | payer OTHER ==
[~2017-05-10] VITALS: Ht 190.5 cm; Wt 113.4 kg
[~2017-05-10] MED LIST: ADDE20CA3 PO; AMOX500T2 PO; BUPIVACAINE/EPIN 0.25% 30 ML VIAL As Ordered ONE; GLYCOPYRROLATE INJ 0.2 MG/ML 2 ML VIAL As Ordered ONE; KETOROLAC 30 MG/ML VIAL (J1885) IV SCH; KETOROLAC 60 MG/2 ML VIAL (J1885) As Ordered ONE; LIDOCAINE 2% INJ 100 MG/5 ML SDV (FOR ANES.) As Ordered ONE; LR 1,000 ML IV ONE; LR 1,000 ML IV SCH; MIDAZOLAM INJ 2 MG/2 ML VIAL (J2250) As Ordered ONE; MORPHINE 2 MG/ML 1ML SYRINGE IV PRN; NEOSTIGMINE 1MG/ML 5 ML SYRINGE (J2710) As Ordered ONE; NORCO, ANEXSIA 5/325MG TABLET (HYDROcodone/ACETAMINOPHEN) PO PRN; ONDANSETRON 4MG/2ML VIAL (J2405) As Ordered ONE; ONDANSETRON 4MG/2ML VIAL (J2405) IV PRN; PERCOCET 5MG/325MG TAB PO PRN; PROPOFOL 200 MG/20 ML VIAL As Ordered ONE; ceFAZolin 1GM INJ (J0690) As Ordered ONE; ceFAZolin SOD 1 GM in D5W MINI-BAG PLUS 50 ML IV ONE; dexameTHASONE 4 MG/ML 1ML VIAL (J1100) As Ordered ONE; fentaNYL 100 MCG/2 ML INJECTION (J3010) As Ordered ONE; fentaNYL 100 MCG/2 ML INJECTION (J3010) IV PRN
[2017-05-10 12:15] VITALS: BP 136/68
--- NOTE | 2017-05-13 09:00 | RO ---
DATE OF PROCEDURE: 05/10/2017 PREOPERATIVE DIAGNOSIS: History of perforated appendicitis. POSTOPERATIVE DIAGNOSIS: History of perforated appendicitis. PROCEDURE: Laparoscopic appendectomy. SURGEON: Gama Moeller MD MARINE FIRER: ANESTHESIA: General endotracheal anesthesia. ESTIMATED BLOOD LOSS: Minimal. FLIUIDS: Crystalloid. DESCRIPTION OF PROCEDURE: The patient was brought to the operating room, was given general anesthesia. After adequate anesthesia and preoperative antibiotics were given, the patient was prepped and draped in the usual sterile fashion. Next, a supraumbilical incision was made with skin knife. Blunt dissection was carried down to fascia. The fascia was grasped with Mega clamps, elevated and a Veress needle placed into the abdominal cavity insufflated to 15 mm pressure. A suprapubic 5 mm left lower quadrant 5 mm trocars were placed under direct visualization after the epigastric 12 mm trocar was placed under direct visualization. Next, the patient was placed in Trendelenburg left side down and the patient had a great deal of air throughout his bowel and did distend up the sigmoid colon so that it was overlying the cecum in the majority of the operation and it was difficult to move our of the way, but eventually after adequate visualization the appendix was mobilized with the cecum being mobilized as well. The tip of the appendix could be seen as well as the base of the appendix. Once this was starting to be mobilized, there was an obvious pocket purulent material that was aspirated out and the mesoappendix was taken at this point. What was clear was that actually the appendix was ruptured previously with a localized fluid collection in this area and more importantly, the appendix was in two pieces. The distal piece was removed and placed next to the cecum and the mesoappendix was dissected up more proximally up to the base of the appendix to where the cecal wall was nicely visualized and transected using a GENE stapler. Both pieces were placed in an EndoCatch bag, brought out through the supraumbilical incision. The abdomen was copiously irrigated until clear. The periappendiceal area was clean, dry. No evidence of purulent discharge was appreciated. I anticipate because of his lack of symptoms of right lower quadrant pain, afebrile, etc. that this was probably a sterile abscess, but in any case, this was copiously irrigated until clear and all trocars removed under direct visualization. #0 Vicryl was used close the fascia at the umbilicus and all incisions were closed with #4-0 Vicryl. Steri-Strips and a dry sterile dressing was applied. The patient was awakened, extubated, brought to recovery room awake, alert, alert, hemodynamically stable. Sponge and needle counts correct times two.
== END ==
LOC: M SDC 07:41
PROVIDERS: ATTEND Surgery
DX: K35.2 Acute appendicitis with generalized peritonitis (principal); F90.9 Attention-deficit hyperactivity disorder, unspecified type; Z79.899 Other long term (current) drug therapy; Z88.2 Allergy status to sulfonamides; Z87.891 Personal history of nicotine dependence
CPT/HCPCS: 44970; 88304; J0690; J1100; J1885; J2250; J2405; J2710; J3010